=== PATIENT | male | born 1945 | race Caucasian/White ===

== ENCOUNTER 2023-08-08 10:02 | Inpatient (IN) | payer MEDICARE ==
[~2023-08-08] VITALS: Ht 177.8 cm; Wt 101.3 kg
[2023-08-15 08:49] LABS: HEMATOCRIT 46.8 % (42.0-52.0); HEMOGLOBIN 15.9 g/dl (13.5-18.0); MEAN CELL VOLUME 86 fl (80.0-100.0); MEAN CORPUSCULAR HEMOGLOBIN 29 pg (27-31); MEAN CORPUSCULAR HGB CONC 34 g/dl (33.0-37.0); MEAN PLATELET VOLUME 8.8 fl (7.4-10.4); PLATELET COUNT 211 K/mm3 (130-400); RED BLOOD COUNT 5.43 M/mm3 (4.20-5.60); REDCELL DISTRIBUTION WIDTH-CV 12.7 % (11.5-14.5)
[2023-08-15 09:05] LABS: CALCIUM 9.3 mg/dL (8.4-10.2); CREATININE, serum 0.97 mg/dL (0.72-1.25); POTASSIUM 4.3 mmol/L (3.5-4.5)
[2023-08-16] VITALS (7 sets, daily range): BP systolic 124–152; BP diastolic 61–93; PULSE 46–87; TEMP 97.2–97.5
[2023-08-16] MEDS ORDERED: AVALIDE 12.5 MG1 TA1 PO (13:54)
[2023-08-16] MEDS ORDERED: ASPIRIN E.C. 8181 MG PO (13:55)
[2023-08-16] MEDS ORDERED: NORVASC 10MG10 MG PO (13:55)
[2023-08-16] MEDS ORDERED: VITAMIND3 5000 PO (13:56)
[2023-08-16] MEDS ORDERED: ZOCOR 10MG10 MG PO (13:56)
[2023-08-16] MEDS ORDERED: ZETIA 10MG TAB10 MG PO (13:56)
[2023-08-16] MEDS ORDERED: VITAMINC1000TA (13:57)
[2023-08-16] MEDS ORDERED: [UNRECOGNIZED DRUG - OTHER] PO (13:58)
--- NOTE | 2023-08-16 17:10 | NUR ---
REPORT RECEIVED FROM PACU, PT UP TO FLOOR AT THIS TIME. VITALS STABLE, PT A/O X4, 5 LAP SITES AND MIDLINE CLEAN, DRY, AND INTACT. FAMILY AT BEDSIDE. WILL CONTINUE TO MONITOR.
--- NOTE | 2023-08-16 20:00 | NUR ---
PATIENT IS ORIENTED BUT DROWSY AND ALREADY HAS LIGHTS TURNED DOWN AND IS READY FOR BED. VSS. 02 @ 2L PER NC WITH SATS IN MID 90'S. PATIENT HAS HOME C-PAP AT BEDSIDE, RT NOTIFIED TO SET UP FOR PATIENT. REPORTS SOME POST-OP ABD DISCOMFORT. GAVE PRN ROXICODONE WITH HS MEDS. IV FLUIDS INFUSING VIA PUMP INTO RIGHT HAND IV. CULLEN TO DD WITH SMALL AMOUNTS OF YELLOW URINE NOTED. ABD MIDLINE AND LAP SITES X5 ARE WELL APPROXIMATED WITH GLUED CLOSURE. HEAD TO TOE ASSESSMENT COMPLETE. SCD'S TO BLE. NO OTHER NEEDS AT THIS TIME. CALL LIGHT IN REACH. BED ALARM ON.
[2023-08-17 00:14] VITALS: BP 137/70; PULSE 72; TEMP 97.6
[2023-08-17 03:44] VITALS: BP 116/55; PULSE 60; TEMP 97.6
[2023-08-17 04:09] VITALS: BP_SYST 116
[2023-08-17 06:03] LABS: BASO % 0.2 % (0.0-2.0); GRAN # 11.8 K/mm3 (1.4-6.5); GRAN % 89.3 % (42.2-75.2); HEMATOCRIT 44.4 % (42.0-52.0); HEMOGLOBIN 15.1 g/dl (13.5-18.0); LYMPH # 0.7 K/mm3 (1.2-3.4); LYMPH % 5.1 % (20.0-51.0); MEAN CELL VOLUME 86 fl (80.0-100.0); MEAN CORPUSCULAR HEMOGLOBIN 29 pg (27-31); MEAN CORPUSCULAR HGB CONC 34 g/dl (33.0-37.0); MEAN PLATELET VOLUME 9.5 fl (7.4-10.4); MONO # 0.6 K/mm3 (0.1-0.6); MONO % 4.7 % (1.7-9.3); PLATELET COUNT 229 K/mm3 (130-400); RED BLOOD COUNT 5.16 M/mm3 (4.20-5.60); REDCELL DISTRIBUTION WIDTH-CV 12.7 % (11.5-14.5)
[2023-08-17 06:10] LABS: CALCIUM 8.6 mg/dL (8.4-10.2); CREATININE, serum 1.71 mg/dL (0.72-1.25); POTASSIUM 4.1 mmol/L (3.5-4.5)
[2023-08-17 07:38] VITALS: BP 119/65; PULSE 86; TEMP 97.6
--- NOTE | 2023-08-17 08:30 | NUR ---
PT RESTING IN BED WITH PAIN /10 IN ABODMEN, CULLEN REMOVED WITH NO ISSUES, PT URINATED IN BATHROOM, PT AMBULATED IN ROOM SBA STEADY GAIT. NO NEEDS AT THIS TIME. WILL CONTINUE TO MONITOR.
--- NOTE | 2023-08-17 09:17 | NUR ---
Supervisor Assembly Department met with patient to discuss discharge planning. Patient advised he is discharging today. Patient lives in [place] with his spouse, Zully (ph#[phone]) and sees Dr. Reyes for primary care. Patient obtains medications from [facility] with no difficulties. Patient uses a CPAP and no other DME. Patient is independent with ADLS. Patient reported Zully is DPOA-HC for him. Discharge Plan: Home
--- NOTE | 2023-08-17 10:44 | NUR ---
Initial visit; Patient doing well and states he has had quite a week with so much happening with his health that ended in a serious surgical procedure. His daughters were present offering support. Severiano is quite proud of both of them. He and Office [employer] (former class mates) had a good and fun visit. Office Administration offered God's blessings to Severiano.
[2023-08-17] MEDS ORDERED: NORCO 325 MG-51 TAB PO (11:18)
[2023-08-17] MEDS ORDERED: COLACE 100100 MG/CAP PO (11:18)
--- NOTE | 2023-08-17 11:30 | NUR ---
DISCHARGE INSTRUCTIONS PROVIDED TO PT AND FAMILY. DISCUSSED FOLLOW UP APPOINTMENTS, SIGNS OF INFECTION, NEW MEDICATIONS, AND REMOVED IV. NO QUESTIONS AT THIS TIME. AWAITING PT TO VOID ONCE MORE BEFORE LEAVING THE FLOOR. WILL CONTINUE TO MONITOR.
--- NOTE | 2023-08-17 11:42 | NUR ---
PT VOIDED. PT AND BELONGINGS ESCORTED OUT OF BUILDING.
== END 2023-08-17 11:30 | disposition home or self-care (01) | DRG 658 ==
LOC: SURG 08-16 12:30 → INPTSU 08-16 12:30 → SURG 08-16 13:00
PROVIDERS: ADMIT Urology
PROC: 8E0W4CZ Robotic Assisted Procedure of Trunk Region, Percutaneous Endoscopic Approach (ICD-10-PCS; 2023-08-16)
PROC: 0TT14ZZ Resection of Left Kidney, Percutaneous Endoscopic Approach (ICD-10-PCS; principal; 2023-08-16 13:00)
DX: C64.2 Malignant neoplasm of left kidney, except renal pelvis (principal); I10 Essential (primary) hypertension; I25.10 Atherosclerotic heart disease of native coronary artery without angina pectoris; Z95.1 Presence of aortocoronary bypass graft; Z87.891 Personal history of nicotine dependence; Z79.82 Long term (current) use of aspirin; E78.5 Hyperlipidemia, unspecified
CPT/HCPCS: A4314; A9284; J0330; J1100; J1650; J2250; J2270; J2405; J2704; J2795; J3010; J7120

== ENCOUNTER 2024-05-24 06:57 | Day surgery (SDC) | payer MEDICARE ==
[~2024-05-24] VITALS: Ht 175.4 cm; Wt 104.7 kg
[~2024-05-24 06:57] MED LIST: ASPIRIN E.C. 8181 MG PO; AVALIDE 12.5 MG1 TA1 PO; COLACE 100100 MG/CAP PO; NORCO 325 MG-51 TAB PO; NORVASC 10MG10 MG PO; VITAMINC1000TA; VITAMIND3 5000 PO; ZETIA 10MG TAB10 MG PO; ZOCOR 10MG10 MG PO; [UNRECOGNIZED DRUG - OTHER] PO
[2024-05-24] MEDS ORDERED: 1/2 NS 1,000 ML IV SCH (07:30)
[2024-05-24] MEDS ORDERED: NS Flush 10 ML SYRINGE PRN ICA (07:30)
[2024-05-24 08:01] LABS: HEMATOCRIT 41.8 % (42.0-52.0); HEMOGLOBIN 14.2 g/dl (13.5-18.0); MEAN CELL VOLUME 88 fl (80.0-100.0); MEAN CORPUSCULAR HEMOGLOBIN 30 pg (27-31); MEAN CORPUSCULAR HGB CONC 34 g/dl (33.0-37.0); MEAN PLATELET VOLUME 8.6 fl (7.4-10.4); PLATELET COUNT 210 K/mm3 (130-400); RED BLOOD COUNT 4.77 M/mm3 (4.20-5.60); REDCELL DISTRIBUTION WIDTH-CV 13.8 % (11.5-14.5)
[2024-05-24 08:06] LABS: INR 1.2 (0.8-3.0); PROTHROMBIN TIME 13.4 SECONDS (9.7-12.8)
[2024-05-24] MEDS ORDERED: ELIQUIS 5MG PO (08:06)
[2024-05-24 08:09] LABS: PARTIAL THROMBOPLASTIN TIME 40.2 SECONDS (26.0-37.0)
[2024-05-24] MEDS ORDERED: Co Q-10 PO (08:11)
[2024-05-24 08:16] VITALS: BP 126/89; PULSE 85; TEMP 97.1
[2024-05-24] MEDS ORDERED: EPI-PEN JR0.5 MG/ML IM (08:19)
[2024-05-24 08:22] LABS: CALCIUM 8.8 mg/dL (8.4-10.2); CREATININE, serum 1.59 mg/dL (0.72-1.25); MAGNESIUM 2.1 mg/dL (1.6-2.6)
[2024-05-24 08:42] LABS: THYROID STIMULATING HORMONE 2.331 uIU/mL (0.350-4.940)
[2024-05-24] MEDS ORDERED: NS Flush 10 ML SYRINGE BID ICA SCH (09:00)
[2024-05-24] MEDS ORDERED: PACERONE400 MG PO (09:36)
[2024-05-24 09:45] VITALS: BP 108/75; PULSE 72
--- NOTE | 2024-05-24 09:45 | NUR ---
Report from BRIAN Son.patient awake,alert and orientated, at bedside.
[2024-05-24 10:00] VITALS: BP 117/84; PULSE 67
[2024-05-24 10:15] VITALS: BP 127/86; PULSE 74
[2024-05-24 10:30] VITALS: BP 135/84; PULSE 81
--- NOTE | 2024-05-24 10:55 | NUR ---
Discharge instructions given to pt.pt verbalizes understanding.pt escorted out vi wheelchair by this nurse.
== END 2024-05-24 11:38 | disposition home or self-care (01) ==
LOC: COL.CAR 06:57
PROVIDERS: Internal Medicine Cardiovascular Disease
DX: I48.0 Paroxysmal atrial fibrillation (principal); I08.3 Combined rheumatic disorders of mitral, aortic and tricuspid valves; G47.33 Obstructive sleep apnea (adult) (pediatric); C64.2 Malignant neoplasm of left kidney, except renal pelvis; Z95.1 Presence of aortocoronary bypass graft; Z98.2 Presence of cerebrospinal fluid drainage device; Z87.891 Personal history of nicotine dependence
CPT/HCPCS: J0282; J2704; J7060